=== PATIENT | male | born 1985 | race American Indian/Alaskan Native ===

== ENCOUNTER 2016-12-31 12:57 | Emergency (ER) | payer SELFPAY ==
[2016-12-31] MEDS ORDERED: BICILLIN L-A IM ONE (17:56)
[2016-12-31] MEDS ORDERED: MOTRIN PO ONE (17:56)
--- NOTE | 2016-12-31 18:01 | Emergency Department Report ---
ED ENT HPI - General Chief complaint: Sore Throat Stated complaint: STRIP THROAT Time Seen by Provider: 12/31/16 17:27 Source: patient Mode of arrival: Ambulatory Limitations: No Limitations - History of Present Illness Initial comments: 31M PMH none p/w c/o x3 days of sore throat. Pt AAOX3, speaking in full sentences. Deneis fever, chills, n/v. Tolerating PO fluid without difficulty but states solid food hurts to swallow. Denies taking any OTC medicine for symptoms. Denies any pus or blood drainage from mouth, patient speaking in full sentences. No audible wheezing or stridor. complaint: sore throat Onset/Timin -: days(s) Location: throat Severity: moderate Quality: aching Consistency: intermittent Worsens with: swallowing, eating - Related Data Previous Rx's Medication Instructions Recorded Last Taken Type Dextromethorphan HBr/B-Forrest 1 each PO Q4H PRN #1 box 12/31/16 Unknown Rx [Cepacol Sorethroat-Cough Familia] Ibuprofen [Motrin] 800 mg PO Q8HR PRN #25 tablet 12/31/16 Unknown Rx Allergies Allergy/AdvReac Type Severity Reaction Status Date / Time No Known Allergies Allergy Unverified 12/31/16 13:19 ED Dental HPI - General Chief complaint: Sore Throat Stated complaint: STRIP THROAT Time Seen by Provider: 12/31/16 17:27 Source: patient Mode of arrival: Ambulatory Limitations: No Limitations - Related Data Previous Rx's Medication Instructions Recorded Last Taken Type Dextromethorphan HBr/B-Forrest 1 each PO Q4H PRN #1 box 12/31/16 Unknown Rx [Cepacol Sorethroat-Cough Familia] Ibuprofen [Motrin] 800 mg PO Q8HR PRN #25 tablet 12/31/16 Unknown Rx Allergies Allergy/AdvReac Type Severity Reaction Status Date / Time No Known Allergies Allergy Unverified 12/31/16 13:19 ED Review of Systems ROS: Stated complaint: STRIP THROAT Other details as noted in HPI Constitutional: denies: chills, fever Eyes: denies: eye pain, eye discharge, vision change ENT: throat pain. denies: ear pain Respiratory: denies: cough, shortness of breath, wheezing Cardiovascular: denies: chest pain, palpitations Endocrine: no symptoms reported Gastrointestinal: denies: abdominal pain, nausea, diarrhea Genitourinary: denies: urgency, dysuria Musculoskeletal: denies: back pain, joint swelling, arthralgia Skin: denies: rash, lesions Neurological: denies: headache, weakness, paresthesias Psychiatric: denies: anxiety, depression Hematological/Lymphatic: denies: easy bleeding, easy bruising ED Past Medical Hx - Past Medical History Previous Medical History?: No - Surgical History Past Surgical History?: No - Social History Smoking Status: Never Smoker Substance Use Type: Non Opiate Pain, Other - Medications Home Medications: Home Medications Medication Instructions Recorded Confirmed Last Taken Type Dextromethorphan HBr/B-Forrest 1 each PO Q4H PRN #1 box 12/31/16 Unknown Rx [Cepacol Sorethroat-Cough Familia] Ibuprofen [Motrin] 800 mg PO Q8HR PRN #25 tablet 12/31/16 Unknown Rx ED Physical Exam - General Limitations: No Limitations General appearance: alert, in no apparent distress - Head Head exam: Present: atraumatic, normocephalic - Eye Eye exam: Present: normal appearance, PERRL, EOMI - ENT ENT exam: Present: mucous membranes moist - Expanded ENT Exam Expanded Throat exam: Positive: tonsillar erythema, tonsillar exudate (tonsillar erythema and exudates on the right side tonsillar pillar. No [employer] M[employer]INE [employer]ENDER uvula is midline oropharynx is open and patent) - Neck Neck exam: Present: normal inspection, full ROM - Respiratory Respiratory exam: Present: normal lung sounds bilaterally. Absent: respiratory distress - Cardiovascular Cardiovascular Exam: Present: regular rate, normal rhythm. Absent: systolic murmur, diastolic murmur, rubs, gallop - GI/Abdominal GI/Abdominal exam: Present: soft, normal bowel sounds - Rectal Rectal exam: Present: deferred - Extremities Exam Extremities exam: Present: normal inspection - Back Exam Back exam: Present: normal inspection - Neurological Exam Neurological exam: Present: alert, oriented X3 - Psychiatric Psychiatric exam: Present: normal affect, normal mood - Skin Skin exam: Present: warm, dry, intact, normal color. Absent: rash ED Course Vital Signs 12/31/16 13:19 Temperature 98.5 F Pulse Rate 82 Respiratory 20 Rate Blood Pressure 157/101 O2 Sat by Pulse 98 Oximetry ED Medical Decision Making - Medical Decision Making A/P: Right-sided tonsillitis 1-empirically treated with Bicillin, Motrin when necessary, lozenges when necessary 2-patient is able to tolerate by mouth fluid without difficulties speaking in full sentences no signs of respiratory distress. 3-advised patient to follow up with primary care and to return to the ED if he experiences drooling any shortness of breath difficulty speaking or inability to swallow fluids by mouth. Also advised to return for any high fevers persistent above 100.4 despite Motrin use. Or severe chills. Critical care attestation.: If time is entered above; I have spent that time in minutes in the direct care of this critically ill patient, excluding procedure time. ED Disposition Clinical Impression: Tonsillitis Disposition: TO HOME OR SELFCARE Is pt being admited?: No Does the pt Need Aspirin: No Condition: Stable Instructions: Tonsillitis (ED) Prescriptions: Dextromethorphan HBr/B-Forrest [Cepacol Sorethroat-Cough Familia] 1 each PO Q4H PRN # 1 box PRN Reason: Sore Throat Ibuprofen [Motrin] 800 mg PO Q8HR PRN #25 tablet PRN Reason: Sore Throat Referrals: [facility] [Provider Group] - 3-5 Days Forms: Accompanied Note, Work/School Release Form(ED) Time of Disposition: 18:05
[2016-12-31 18:35] VITALS: BP 168/93
== END 2016-12-31 18:29 | disposition home or self-care (01) ==
LOC: ED 12:57
DX: J03.90 Acute tonsillitis, unspecified (principal)
CPT/HCPCS: 87116; 87430; 96372; 99282; J0561

== ENCOUNTER 2017-05-06 11:11 | Emergency (ER) | payer SELFPAY ==
[2017-05-06 11:23] VITALS: BP 167/87
[2017-05-06] MEDS ORDERED: MOTRIN PO ONE (11:43)
--- NOTE | 2017-05-06 12:02 | XRay Report ---
Lumbar spine: Back pain. The vertebral height, alignment, and interspaces are unremarkable. The bones appear well-mineralized. Impressions: No pathology identified.
--- NOTE | 2017-05-06 12:25 | Emergency Department Report ---
ED Back Pain/Injury HPI - General Chief Complaint: Back Pain/Injury Stated Complaint: TAILBONE PAIN Time Seen by Provider: 05/06/17 11:41 Source: patient Limitations: No Limitations - History of Present Illness Initial Comments: This is a 31-year-old male nontoxic, well nourished in appearance, no acute signs of distress presents to the ED with c/o of low back pain x2 days. 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 Patient denies any trauma to the region. Denies any numbness, tingling , fever, chills, headache, n/v, chest pain, shortness of breathe, dysuria, hematuria, bladder/bowel instability, polyuria, blurry vision. Patient describes pain as aching intermittent with level of 7/10. Patient stated symptoms are resolved when supine position and aggravated when sitting. Patient denies any allergies or PMH. MD Complaint: back pain -: Gradual, days(s) (2) Similar Symptoms Previously: Yes Place: work Radiation: none Severity: mild Severity scale (0 -10): 7 Quality: aching Consistency: intermittent Improves With: none Worsens With: none Associated Symptoms: denies other symptoms. denies: confusion, weakness, chest pain, numbness, difficulty walking, cough, difficulty urinating, diaphoresis, incontinence, fever/chills, constipation, headaches, abdominal pain, loss of appetite, malaise, nausea/vomiting, rash, seizure, shortness of breath, syncope - Related Data Previous Rx's Medication Instructions Recorded Last Taken Type Dextromethorphan/Benzocaine 1 each PO Q4H PRN #1 box 12/31/16 Unknown Rx [Cepacol Sorethroat-Cough Familia] Ibuprofen [Motrin] 800 mg PO Q8HR PRN #25 tablet 12/31/16 Unknown Rx Cyclobenzaprine [Flexeril] 10 mg PO BID PRN #10 tablet 05/06/17 Unknown Rx Ibuprofen [Motrin] 600 mg PO Q8H PRN #30 tablet 05/06/17 Unknown Rx Allergies Allergy/AdvReac Type Severity Reaction Status Date / Time No Known Allergies Allergy Unverified 05/06/17 11:23 ED Review of Systems ROS: Stated complaint: TAILBONE PAIN Other details as noted in HPI Constitutional: denies: chills, fever Eyes: denies: eye pain, eye discharge, vision change ENT: denies: ear pain, throat pain Respiratory: denies: cough, shortness of breath, wheezing Cardiovascular: denies: chest pain, palpitations Endocrine: no symptoms reported Gastrointestinal: denies: abdominal pain, nausea, diarrhea Genitourinary: denies: urgency, dysuria Musculoskeletal: back pain. denies: joint swelling, arthralgia Skin: denies: rash, lesions Neurological: denies: headache, weakness, paresthesias Psychiatric: denies: anxiety, depression Hematological/Lymphatic: denies: easy bleeding, easy bruising ED Past Medical Hx - Past Medical History Previous Medical History?: No - Surgical History Past Surgical History?: No - Social History Smoking Status: Never Smoker Substance Use Type: None - Medications Home Medications: Home Medications Medication Instructions Recorded Confirmed Last Taken Type Dextromethorphan/Benzocaine 1 each PO Q4H PRN #1 box 12/31/16 Unknown Rx [Cepacol Sorethroat-Cough Familia] Ibuprofen [Motrin] 800 mg PO Q8HR PRN #25 tablet 12/31/16 Unknown Rx Cyclobenzaprine [Flexeril] 10 mg PO BID PRN #10 tablet 05/06/17 Unknown Rx Ibuprofen [Motrin] 600 mg PO Q8H PRN #30 tablet 05/06/17 Unknown Rx ED Physical Exam - General Limitations: No Limitations General appearance: alert, in no apparent distress - Head Head exam: Present: atraumatic, normocephalic - Eye Eye exam: Present: normal appearance, PERRL, EOMI Pupils: Present: normal accommodation - ENT ENT exam: Present: normal exam, normal orophraynx, mucous membranes moist, TM's normal bilaterally, normal external ear exam - Neck Neck exam: Present: normal inspection, full ROM. Absent: tenderness, meningismus, lymphadenopathy, thyromegaly - Respiratory Respiratory exam: Present: normal lung sounds bilaterally. Absent: respiratory distress, wheezes, rales, rhonchi, stridor, chest wall tenderness, accessory muscle use, decreased breath sounds, prolonged expiratory - Cardiovascular Cardiovascular Exam: Present: regular rate, normal rhythm, normal heart sounds. Absent: systolic murmur, diastolic murmur, rubs, gallop - GI/Abdominal GI/Abdominal exam: Present: soft, normal bowel sounds. Absent: distended, tenderness, guarding, rebound, rigid, diminished bowel sounds - Rectal Rectal exam: Present: deferred - Extremities Exam Extremities exam: Present: normal inspection, full ROM, normal capillary refill. Absent: tenderness, pedal edema, joint swelling, calf tenderness - Back Exam Back exam: Present: normal inspection, full ROM, paraspinal tenderness (lumbar region). Absent: tenderness, CVA tenderness (R), CVA tenderness (L), muscle spasm, vertebral tenderness, rash noted - Expanded Back Exam Expanded Back exam: Absent: saddle anesthesia Back exam: Negative Straight Leg Raising: Left, Right - Neurological Exam Neurological exam: Present: alert, oriented X3, CN II-XII intact, normal gait, reflexes normal - Psychiatric Psychiatric exam: Present: normal affect, normal mood - Skin Skin exam: Present: warm, dry, intact, normal color. Absent: rash ED Course Vital Signs 05/06/17 11:21 Temperature 98.8 F Pulse Rate 18 L Respiratory 16 Rate Blood Pressure 167/87 O2 Sat by Pulse 99 Oximetry - Reevaluation(s) Reevaluation #1: 05/06/17 12:27 Patient is speaking in full sentences with no signs of distress noted. ED Medical Decision Making - Medical Decision Making This is a 31-year-old male that presents with low back strain. Patient was examined by me and patient is stable. Xray has been obtained and dictated by radiologist with normal limits. Patient was notified of xray results with no questions. UA small hematuria. CT of abd wo contrast obtained with normal limits besides large right inguinoscrotal hernia. Patient was examined for hernia and unable to feel or see any hernia in the region. Patient was notified to f/u with pcp for this. Patient received Motrin in the ED which patient stated symptoms are resolving and better. Patient was instructed Follow-up with a primary care doctor in 3-5 days or if symptoms worsen and continue return to emergency room as soon as possible. Patient received a discharge ibuprofen and Flexeril and was instructed not operate heavy machinery while taking Flexeril due to sedation At time time of discharge, the patient does not seem toxic or ill in appearance. No acute signs of distress noted. Patient agrees to discharge treatment plan of care. No further questions noted by the patient. Critical care attestation.: If time is entered above; I have spent that time in minutes in the direct care of this critically ill patient, excluding procedure time. ED Disposition Clinical Impression: Low back strain Qualifiers: Encounter type: initial encounter Qualified Code(s): S39.012A - Strain of muscle, fascia and tendon of lower back, initial encounter Inguinal hernia Qualifiers: Obstruction and gangrene presence: without obstruction or gangrene Laterality: unilateral Recurrence: not specified as recurrent Qualified Code(s): K40.90 - Unilateral inguinal hernia, without obstruction or gangrene, not specified as recurrent Disposition: DC- TO HOME OR SELFCARE Is pt being admited?: No Does the pt Need Aspirin: No Condition: Stable Instructions: Ibuprofen (By mouth), Cyclobenzaprine (By mouth), Low Back Strain (ED), Inguinal Hernia (ED) Additional Instructions: Follow-up with your primary care doctor in 3-5 days for your abnormal CT findings of Hernia or if symptoms worsen such as bladder or bowel stability, chest pain, short of breath, numbness or tingling sensation in extremities, headache, dizziness, visual changes, nausea vomiting, or abdominal pain, return back to emergency room as was possible. Take ibuprofen and Flexeril as prescribed. Do not operate heavy machinery while taking Flexeril due to sedation Prescriptions: Cyclobenzaprine [Flexeril] 10 mg PO BID PRN #10 tablet PRN Reason: Muscle Spasm Ibuprofen [Motrin] 600 mg PO Q8H PRN #30 tablet PRN Reason: Pain Referrals: [facility] [Outside] - 3-5 Days [facility] [Outside] - 3-5 Days PRIMARY MD MIGUEL [Primary Care Provider] - 3-5 Days BERONICA DORAN MD [Staff Physician] - 3-5 Days Forms: Work/School Release Form(ED)
[2017-05-06 12:47] LABS: Bacteria,Urine 1+ /HPF (Negative); Bilirubin,Urine NEG (Negative); Blood,Urine SM (Negative); Ketones,Urine NEG (Negative); Leukocyte Esterase,Urine NEG (Negative); Mucus,Urine FEW /HPF; Nitrite,Urine NEG (Negative); Protein,Urine <15 mg/dL mg/dL (Negative); RBC,Urine < 1.0 /HPF (0.0-6.0); Urobilinogen,Urine < 2.0 mg/dL (<2.0)
--- NOTE | 2017-05-06 15:12 | Cat Scan Report ---
CT scan of abdomen and pelvis without IV contrast: History: Back pain, UA positive for blood. Findings: Normal lung bases. No pleural or pericardial effusion. Probable fatty liver. Normal spleen pancreas and gallbladder. Normal adrenals. No definite calculi the kidney parenchyma and bladder. No free intraperitoneal fluid or air. No evidence of adenopathy. Gaseous colon with moderate volume stool in colon. No evidence of appendicitis or diverticulitis. There is an large right inguinoscrotal hernia measuring 10 cm x 7.6 cm. containing omentum. Impression: Large right inguinoscrotal hernia.
== END 2017-05-06 15:41 | disposition home or self-care (01) ==
LOC: ED 11:11
DX: S39.012A Strain of muscle, fascia and tendon of lower back, initial encounter (principal); K40.90 Unilateral inguinal hernia, without obstruction or gangrene, not specified as recurrent; X58.XXXA Exposure to other specified factors, initial encounter; Y93.9 Activity, unspecified; Y92.89 Other specified places as the place of occurrence of the external cause; Y99.8 Other external cause status
CPT/HCPCS: 72100; 74176; 81001

== ENCOUNTER 2019-08-20 08:51 | Emergency (ER) | payer BC ==
--- NOTE | 2019-08-20 09:35 | Event Note ---
ED Screening Note Date of service: 08/20/19 Time: 09:33 ED Screening Note: 34 y/o male comes in for injury to his right ring finger. This initial assessment/diagnostic orders/clinical plan/treatment(s) is/are subject to change based on patients health status, clinical progression and re-assessment by fellow clinical providers in the ED. Further treatment and workup at subsequent clinical providers discretion. Patient/guardian urged not to elope from the ED as their condition may be serious if not clinically assessed and managed. Initial orders include:
[2019-08-20 10:06] VITALS: BP 195/147
--- NOTE | 2019-08-20 10:07 | XRay Report ---
CLINICAL DATA: injury to right hand TECHNICAL DATA: Three views were obtained, AP, lateral and oblique. FINDINGS: There is no acute fracture or dislocation. The visualized joint spaces are normal. IMPRESSION: No acute radiographic abnormality. CLINICAL DATA: injury to right hand TECHNICAL DATA: Three views were obtained, AP, lateral and oblique. FINDINGS: There is no acute fracture or dislocation. The visualized joint spaces are normal. IMPRESSION: No acute radiographic abnormality. CLINICAL DATA: injury to right hand TECHNICAL DATA: Three views were obtained, AP, lateral and oblique. FINDINGS: There is no acute fracture or dislocation. The visualized joint spaces are normal. IMPRESSION: No acute radiographic abnormality. Signer Name: Charlie Abad MD Signed: 08/20/2019 10:02 AM Workstation Name: [id number]
[2019-08-20] MEDS ORDERED: oxyCODONE /ACETAMINOPHEN 5-325MG TAB PO ONE (10:11)
[2019-08-20] MEDS ORDERED: TETANUS,DIPH,PERTUSS(ACELL) VACCINE 0.5 ML SYRINGE IM ONE (10:11)
[2019-08-20] MEDS ORDERED: LIDOCAINE 2%/EPINEPHRINE 1:200,000 VIAL (20 ML) INFILTRATI ONE (10:11)
--- NOTE | 2019-08-20 10:12 | Emergency Department Report ---
ED General Adult HPI - General Chief complaint: Extremity Injury, Upper Stated complaint: RT FINGER SMASHED/PAIN Time Seen by Provider: 08/20/19 09:28 Source: patient, RN notes reviewed, old records reviewed Mode of arrival: Ambulatory Limitations: No Limitations - History of Present Illness Initial comments: Patient is a pleasant 34-year-old gentleman who is not known to myself previously, he is right-hand dominant, does not have a primary care doctor, and does not have chronic medical conditions that he is aware of. He presents to the ER with a complaint of subacute right distal dorsal ring finger pain and swelling. He had a work-related injury where he had a mild crush injury to the dorsal distal fingertip of his right upper extremity. This injury was sustained a few days ago. 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 He denies additional injuries, and he denies additional complaints. There is no complaint of headache, neck pain, chest pain, abdominal pain or shortness of breath. There is no complaint of extremity weakness saddle numbness. The patient denies additional injuries and complaints. Pain is throbbing, increases with palpation and range of motion, and decreases with rest. -: Gradual, days(s) Location: right, lower extremity Quality: other Consistency: other Improves with: other Worsens with: other Associated Symptoms: other - Related Data Previous Rx's Medication Instructions Recorded Last Taken Type Ibuprofen [Motrin] 800 mg PO Q8HR PRN #25 tablet 12/31/16 Unknown Rx Ibuprofen [Motrin] 600 mg PO Q8H PRN #30 tablet 05/06/17 Unknown Rx Acetaminophen [Non-Aspirin Extra 500 mg PO Q6HR PRN #30 tablet 08/20/19 Unknown Rx Strength] Clindamycin [Clindamycin CAP] 300 mg PO Q8H #15 cap 08/20/19 Unknown Rx Ibuprofen [Motrin] 600 mg PO Q8H PRN #30 tablet 08/20/19 Unknown Rx Allergies Allergy/AdvReac Type Severity Reaction Status Date / Time No Known Allergies Allergy Verified 08/20/19 08:54 ED Review of Systems ROS: Stated complaint: RT FINGER SMASHED/PAIN Other details as noted in HPI Constitutional: see HPI Eyes: as per HPI ENT: as per HPI Respiratory: see HPI Cardiovascular: as per HPI Endocrine: see HPI Gastrointestinal: as per HPI Genitourinary: as per HPI Musculoskeletal: as per HPI Skin: as per HPI Neurological: as per HPI Psychiatric: as per HPI Hematological/Lymphatic: as per HPI ED Past Medical Hx - Past Medical History Previous Medical History?: No - Surgical History Past Surgical History?: No - Social History Smoking Status: Never Smoker Substance Use Type: None - Medications Home Medications: Home Medications Medication Instructions Recorded Confirmed Last Taken Type Ibuprofen [Motrin] 800 mg PO Q8HR PRN #25 tablet 12/31/16 Unknown Rx Ibuprofen [Motrin] 600 mg PO Q8H PRN #30 tablet 05/06/17 Unknown Rx Acetaminophen [Non-Aspirin Extra 500 mg PO Q6HR PRN #30 tablet 08/20/19 Unknown Rx Strength] Clindamycin [Clindamycin CAP] 300 mg PO Q8H #15 cap 08/20/19 Unknown Rx Ibuprofen [Motrin] 600 mg PO Q8H PRN #30 tablet 08/20/19 Unknown Rx ED Physical Exam - General Limitations: No Limitations General appearance: alert, anxious, obese - Head Head exam: Present: atraumatic, normocephalic - Eye Eye exam: Present: normal appearance, EOMI. Absent: nystagmus - ENT ENT exam: Present: normal exam, normal orophraynx, mucous membranes moist, normal external ear exam - Neck Neck exam: Present: normal inspection, full ROM. Absent: tenderness, meningis mus - Respiratory Respiratory exam: Present: normal lung sounds bilaterally. Absent: respiratory distress - Cardiovascular Cardiovascular Exam: Present: regular rate, normal rhythm, normal heart sounds. Absent: bradycardia, tachycardia, irregular rhythm, systolic murmur, diastolic murmur, rubs, gallop - GI/Abdominal GI/Abdominal exam: Present: soft. Absent: distended, tenderness, guarding, rebound, rigid, pulsatile mass - Rectal Rectal exam: Present: deferred - Extremities Exam Extremities exam: Present: normal inspection, full ROM, other (2+ pulses noted in the bilateral upper extremities. Sensation is intact to light touch in the bilateral deltoid, median, radial, ulnar distribution. Finger intrinsics, lumbricals, thumb intrinsics intact in the right upper extremity. There is a paronychia noted on the dorsal distal aspect of the right ring finger. There is minimal surrounding cellulitis.). Absent: pedal edema, calf tenderness - Back Exam Back exam: Present: normal inspection, full ROM. Absent: tenderness, CVA tenderness (R), CVA tenderness (L), paraspinal tenderness, vertebral tenderness - Neurological Exam Neurological exam: Present: alert, other (There is no facial droop. The tongue is midline. Extraocular movements are intact bilaterally. There is 5 out of 5 strength in bilateral upper and lower extremities. Sensation is intact to light touch bilateral upper and lower extremities. There is a normal gait.) - Psychiatric Psychiatric exam: Present: anxious - Skin Skin exam: Present: warm, dry, intact, normal color. Absent: rash ED Course Vital Signs 08/20/19 08/20/19 09:21 10:05 Temperature 99.0 F Pulse Rate 92 H 108 H Respiratory 20 16 Rate Blood Pressure 201/140 Blood Pressure 195/147 [Left] O2 Sat by Pulse 98 100 Oximetry - Reevaluation(s) Reevaluation #1: 08/20/19 10:31 Differential diagnosis, including but not limited to: Paronychia, crush injury, cellulitis, chronic hypertension Assessment and plan: 34-year-old gentleman, with what appears to be simple right-sided paronychia, without evidence of compartment syndrome. He is afebrile with reassuring vital signs with the exception of hypertension. His hypertension is chronic as per review of old medical records. It does not require emergent diagnostic work-up or intervention at this time. Please reference the [employer] clinical policy and hypertension which is not acutely symptomatic. We discussed diet and lifestyle modifications, need for outpatient follow-up with a primary care doctor. His right upper extremity finger was prepped in typical aseptic technique with Betadine, and the patient has given verbal informed consent for paronychia drainage after thecal block. 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 - I & D Right Distal Dorsal Finger Type of Procedure: Simple Blade Size: 11 I & D Procedure: betadine prep Progress: Patient gave verbal consent for stab incision to paronychia on the right ring finger. He refused/declined thecal block/ring block. Risks, benefits, alternatives described. The right ring finger was prepped in typical aseptic technique with Betadine. A quick stab incision was made with an 11 blade, and approximately 5 cc of purulent material were expressed. The wound was then gently expressed, and patient felt much improved. A 4 x 4 dressing was then applied with gentle pressure. The patient tolerated the procedure well. ED Medical Decision Making - Radiology Data Radiology results: report reviewed, image reviewed Print Report Referring Physician: RUFUS MELENDEZ Patient Name: ZACK JOSEPH Date of : 1985 Sex: Male Report Date: 2019-08-20 Report Status: Finalized Findings [facility] [address] [place] [address] XRay Report Signed Patient: ZACK JOSEPH JR MR#: [id number] : 1985 Acct:[id number] Age/Sex: 34 / M ADM Date: 08/20/19 Loc: ED Attending Dr: Ordering Physician: ALEAH LEHMAN Date of Service: 08/20/19 Procedure(s): XR finger(s) 2+V RT Accession Number(s): [id number] cc: ALEAH LEHMAN Fluoro Time In Minutes: CLINICAL DATA: injury to right hand TECHNICAL DATA: Three views were obtained, AP, lateral and oblique. FINDINGS: There is no acute fracture or dislocation. The visualized joint spaces are normal. IMPRESSION: No acute radiographic abnormality. CLINICAL DATA: injury to right hand TECHNICAL DATA: Three views were obtained, AP, lateral and oblique. FINDINGS: There is no acute fracture or dislocation. The visualized joint spaces are normal. IMPRESSION: No acute radiographic abnormality. CLINICAL DATA: injury to right hand TECHNICAL DATA: Three views were obtained, AP, lateral and oblique. FINDINGS: There is no acute fracture or dislocation. The visualized joint spaces are normal. IMPRESSION: No acute radiographic abnormality. Signer Name: Charlie Abad MD Signed: 08/20/2019 10:02 AM Workstation Name: [id number] Transcribed By: KEZIA Dictated By: Charlie Abad MD Electronically Authenticated By: Charlie Abad MD Signed Date/Time: 08/20/19 1002 DD/ 01 Critical care attestation.: If time is entered above; I have spent that time in minutes in the direct care of this critically ill patient, excluding procedure time. ED Disposition Clinical Impression: Paronychia, Elevated blood pressure reading Disposition: DC-01 TO HOME OR SELFCARE Is pt being admited?: No Does the pt Need Aspirin: No Condition: Stable Additional Instructions: Please wash the right upper extremity with gentle soap and water once every 12- 24 hours. Patient may soak the right ring finger in hot soaks once every 12-24 hours. Otherwise, keep the right ring finger dry and covered. Take the antibiotics as directed. Follow-up with a primary care doctor, or hand specialist/specialist employee labor relations within the next 3 to 5 days for repeat checkup and/or evaluation. Local primary care doctors include the following: [facility], [facility], Dr. Peterson Local orthopedist include the following: Dr. 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 Deferred to the patient's hotel or motel room service supervisor or boss as to whether or not this will qualify as per the direct protocols. Patient was found to have hypertension and elevated blood pressure in the emergency room. Recommend that patient diet, lose weight, participate in exercise as tolerated, drink plenty of water, and eats plenty of fiber, vegetables, lean protein, and avoid consumption of salt, sugar, and simple carbohydrates. Recommend following up with a primary care doctor for chronic elevated blood pressure within the next 2 weeks. Long-term complications of hypertension and elevated blood pressure include stroke, heart attack, disability, paralysis, loss of quality of life. Please return to the emergency room right away with new, worsened or different symptoms, or symptoms not present on the initial emergency room evaluation. Prescriptions: Clindamycin [Clindamycin CAP] 300 mg PO Q8H #15 cap Ibuprofen [Motrin] 600 mg PO Q8H PRN #30 tablet PRN Reason: Pain Acetaminophen [Non-Aspirin Extra Strength] 500 mg PO Q6HR PRN #30 tablet PRN Reason: Pain , Severe (7-10) Referrals: KARLENE PETERSON MD [Staff Physician] - 3-5 Days [facility] [Provider Group] - 3-[address] [facility] [Provider Group] - 3-5 Days NORBERT MCCARTHY MD [Staff Physician] - 3-5 Days [facility] [Provider Group] - 3-5 Days
[2019-08-20] MEDS ORDERED: LIDOCAINE (2%) 20 MG/1 ML VIAL 20 ML MDV INFILTRATI ONE (10:27)
[2019-08-20] MEDS ORDERED: POVIDONE-IODINE OINTMENT 28.35 GM TP SCH (11:00)
== END 2019-08-20 11:18 | disposition home or self-care (01) ==
LOC: ED 08:51
DX: L03.011 Cellulitis of right finger (principal); R03.0 Elevated blood-pressure reading, without diagnosis of hypertension
CPT/HCPCS: 90471; 90715; 99283

== ENCOUNTER 2019-08-26 11:37 | Outpatient (CLI) | payer BC ==
[2019-08-26 11:58] LABS: Basophils # (Auto) 0.1 K/mm3 (0.0-0.1); Basophils % (Auto) 0.8 % (0.0-1.8); Eosinophils # (Auto) 0.1 K/mm3 (0.0-0.4); Eosinophils % (Auto) 1.4 % (0.0-4.3); Hematocrit 42.6 % (35.5-45.6); Hemoglobin 14.8 gm/dl (11.8-15.2); Lymphocytes % (Auto) 20.9 % (13.4-35.0); Mean Corpuscular HGB Conc 35 % (32-34); Mean Corpuscular Volume 84 fl (84-94); Monocytes # (Auto) 0.6 K/mm3 (0.0-0.8); Monocytes % (Auto) 6.1 % (0.0-7.3); Platelet Count 325 K/mm3 (140-440); Red Blood Count 5.06 M/mm3 (3.65-5.03); Red Cell Distribution Width 13.4 % (13.2-15.2)
[2019-08-26 12:18] LABS: Alanine Aminotransferase 68 units/L (7-56); Albumin 4.9 g/dL (3.9-5); BUN/Creatinine Ratio 8; Blood Urea Nitrogen 9 mg/dL (9-20); Calcium 9.4 mg/dL (8.4-10.2); Chol/HDL Ratio 4.64 %; HDL Cholesterol 48 mg/dL (40-59); Hemolysis Index 2; LDL Cholesterol,Direct 160 mg/dL (50-130)
[2019-08-29 14:31] LABS: Vitamin D, 25-OH, D2 <4 ng/mL
== END 2019-08-26 11:38 | disposition home or self-care (01) ==
LOC: LAB 11:37
PROVIDERS: ATTEND Internal Medicine
DX: Z00.00 Encounter for general adult medical examination without abnormal findings (principal); Z13.1 Encounter for screening for diabetes mellitus; E66.09 Other obesity due to excess calories; Z13.220 Encounter for screening for lipoid disorders; Z13.29 Encounter for screening for other suspected endocrine disorder; Z13.21 Encounter for screening for nutritional disorder
CPT/HCPCS: 36415; 80053; 80061; 82306; 82607; 83036; 84443; 85025

== ENCOUNTER 2020-01-20 08:57 | Outpatient (CLI) | payer BC ==
--- NOTE | 2020-01-20 15:43 | Vascular Lab Report ---
Duplex Doppler examination of the renal arteries INDICATION: Morbid obesity, hypertension COMPARISON: CT abdomen and pelvis 05/06/2017 FINDINGS: Study was difficult due to the patient's body habitus and overlying bowel gas limiting the evaluation. Good flow is seen in the aorta. Systolic velocity in the aorta is 121 cm/s. No evidence of bowel aort ic aneurysm is seen. Flow is noted in the proximal superior mesenteric artery Flow is noted in the renal arteries bilaterally with peak systolic velocity on the right of 111 cm/s and peak systolic velocity on the left of 90 cm/s. Resistive indices were not calculated due to the aortic velocities. Right kidney measures 10.4 cm in length and the left kidney measures 10.7 cm in length. No masses are seen. No obvious calculi are noted. No cortical thinning is seen. No evidence of obstruction is note d. IMPRESSION: 1. No anatomical renal abnormalities seen 2. Flow is noted in the renal arterial systems bilaterally though is incompletely assessed due to fac tors above regarding stenoses. Signer Name: Nilay Caban MD Signed: 01/20/2020 3:38 PM Workstation Name: [id number]
== END 2020-01-20 08:58 | disposition home or self-care (01) ==
LOC: US 08:57
PROVIDERS: ATTEND Internal Medicine
DX: I10 Essential (primary) hypertension (principal)
CPT/HCPCS: 93975

== ENCOUNTER 2020-04-13 08:48 | Emergency (ER) | payer BC ==
[2020-04-13 08:53] VITALS: BP 190/113
[2020-04-13] MEDS ORDERED: IBUPROFEN 800 MG TAB PO ONE (09:33)
[2020-04-13] MEDS ORDERED: LIDOCAINE VISCOUS 2% 15 ML ORAL LIQD MM ONE (09:33)
--- NOTE | 2020-04-13 09:59 | XRay Report ---
CHEST 2 VIEWS INDICATION: Chest pain.. COMPARISON: None. FINDINGS: Support devices: None. Heart: Within normal limits. Lungs/Pleura: No acute air space or interstitial disease. No significant pleural effusion. IMPRESSION: No acute findings. Signer Name: Joe Kaur MD Signed: 04/13/2020 9:55 AM Workstation Name: [id number]
--- NOTE | 2020-04-13 10:22 | Emergency Department Report ---
- General Chief Complaint: Sore Throat Stated Complaint: throat pain Time Seen by Provider: 04/13/20 09:19 Source: patient Mode of arrival: Ambulatory Limitations: No Limitations - History of Present Illness Initial Comments: This is a 34-year-old male nontoxic, well nourished in appearance, no acute signs of distress presents to the ED with c/o of sore throat and nonproductive d ry cough x several days. Patient denies any sick contacts. Patient denies any recent travels, long car, recent hospital stays. Patient denies any calf pain or calf tenderness. Patient describes sore throat as swallowing razer blades. Patient denies any fever, chills, hemoptysis, headache, stiff neck, nausea, vomiting, chest pain, shortness of breath, numbness or tingling. Patient denies any drooling or hoarseness. Patient denies any allergies. Patient stated has past medical history of hypertension which he missed his dose of blood pressure medication today. Patient that he does have blood pressure medication and stated just missed it today. MD Complaint: cough, sore throat -: days(s) Severity: mild Severity scale (0 -10): 3 Quality: aching Consistency: intermittent Improves With: nothing Worsens With: other (swallowing) Associated Symptoms: sore throat, cough. denies: fever, chills, myalgias, diaphoresis, headache, rhinorrhea, nasal congestion, stiff neck, chest pain, shortness of breath, abdominal pain, nausea, vomiting, diarrhea, dysuria, rash, confusion, right sweats, weight loss, epistaxis, hoarseness, ear pain Treatments Prior to Arrival: none - Related Data Previous Rx's Medication Instructions Recorded Last Taken Type Ibuprofen [Motrin] 800 mg PO Q8HR PRN #25 tablet 12/31/16 Unknown Rx Ibuprofen [Motrin] 600 mg PO Q8H PRN #30 tablet 05/06/17 Unknown Rx Acetaminophen [Non-Aspirin Extra 500 mg PO Q6HR PRN #30 tablet 08/20/19 Unknown Rx Strength] Clindamycin [Clindamycin CAP] 300 mg PO Q8H #15 cap 08/20/19 Unknown Rx Ibuprofen [Motrin] 600 mg PO Q8H PRN #30 tablet 08/20/19 Unknown Rx Amoxicillin [Amoxicillin TAB] 875 mg PO BID #20 tablet 04/13/20 Unknown Rx Ibuprofen [Motrin] 600 mg PO Q8H PRN #20 tablet 04/13/20 Unknown Rx Nystas/Diphen/Xyl Visc/Mylanta 15 ml MM Q6H PRN 5 Days ml 04/13/20 Unknown Rx [Magic Mouthwash] Allergies Allergy/AdvReac Type Severity Reaction Status Date / Time No Known Allergies Allergy Verified 08/20/19 08:54 ED Review of Systems ROS: Stated complaint: throat pain Other details as noted in HPI Comment: All other systems reviewed and negative Constitutional: denies: chills, fever Eyes: denies: eye pain, eye discharge, vision change ENT: throat pain. denies: ear pain Respiratory: cough. denies: shortness of breath, wheezing Cardiovascular: denies: chest pain, palpitations Endocrine: no symptoms reported Gastrointestinal: denies: abdominal pain, nausea, diarrhea Genitourinary: denies: urgency, dysuria Musculoskeletal: denies: back pain, joint swelling, arthralgia Skin: denies: rash, lesions Neurological: denies: headache, weakness, paresthesias Psychiatric: denies: anxiety, depression Hematological/Lymphatic: denies: easy bleeding, easy bruising ED Past Medical Hx - Past Medical History Previous Medical History?: Yes Hx Hypertension: Yes - Surgical History Past Surgical History?: No - Social History Smoking Status: Never Smoker Substance Use Type: None - Medications Home Medications: Home Medications Medication Instructions Recorded Confirmed Last Taken Type Ibuprofen [Motrin] 800 mg PO Q8HR PRN #25 tablet 12/31/16 Unknown Rx Ibuprofen [Motrin] 600 mg PO Q8H PRN #30 tablet 05/06/17 Unknown Rx Acetaminophen [Non-Aspirin Extra 500 mg PO Q6HR PRN #30 tablet 08/20/19 Unknown Rx Strength] Clindamycin [Clindamycin CAP] 300 mg PO Q8H #15 cap 08/20/19 Unknown Rx Ibuprofen [Motrin] 600 mg PO Q8H PRN #30 tablet 08/20/19 Unknown Rx Amoxicillin [Amoxicillin TAB] 875 mg PO BID #20 tablet 04/13/20 Unknown Rx Ibuprofen [Motrin] 600 mg PO Q8H PRN #20 tablet 04/13/20 Unknown Rx Nystas/Diphen/Xyl Visc/Mylanta 15 ml MM Q6H PRN 5 Days ml 04/13/20 Unknown Rx [Magic Mouthwash] ED Physical Exam - General Limitations: No Limitations General appearance: alert, in no apparent distress - Head Head exam: Present: atraumatic, normocephalic - Eye Eye exam: Present: normal appearance - Expanded ENT Exam Expanded Ear exam: Present: normal external inspection Mouth exam: Present: normal external inspection, tongue normal. Absent: drooling, trismus, muffled voice Teeth exam: Present: normal inspection Throat exam: Positive: tonsillar erythema, other (uvula midline). Negative: tonsillomegaly, tonsillar exudate, R peritonsillar mass, L peritonsillar mass - Neck Neck exam: Present: normal inspection, full ROM. Absent: tenderness, meningismus, lymphadenopathy - Respiratory Respiratory exam: Present: normal lung sounds bilaterally. Absent: respiratory distress, wheezes, rales, rhonchi, stridor, chest wall tenderness, accessory muscle use, decreased breath sounds, prolonged expiratory - Cardiovascular Cardiovascular Exam: Present: regular rate, normal rhythm, normal heart sounds. Absent: irregular rhythm, systolic murmur, diastolic murmur, rubs, gallop - Extremities Exam Extremities exam: Present: full ROM - Back Exam Back exam: Present: full ROM - Neurological Exam Neurological exam: Present: alert, oriented X3, normal gait - Psychiatric Psychiatric exam: Present: normal affect, normal mood - Skin Skin exam: Present: warm, dry, intact, normal color. Absent: rash ED Course Vital Signs 04/13/20 04/13/20 08:49 10:28 Temperature 98.9 F Pulse Rate 111 H 98 H Respiratory 20 20 Rate Blood Pressure 190/113 O2 Sat by Pulse 98 100 Oximetry - Reevaluation(s) Reevaluation #1: 04/13/20 10:21 Patient is speaking in full sentences with no signs of distress noted. ED Medical Decision Making - Radiology Data Referring Physician: JEAN RYAN Patient Name: ZACK JOSEPH JR Date of : 1985 Sex: Male Report Date: 2020-04-13 Report Status: Finalized [facility] [address] [place] [address] XRay Report Signed Patient: ZACK JOSEPH JR MR#: [id number] : 1985 Acct:[id number] Age/Sex: 34 / M ADM Date: 04/13/20 Loc: ED Attending Dr: Ordering Physician: JEAN RYAN NP Date of Service: 04/13/20 Procedure(s): XR chest routine 2V Accession Number(s): [id number] cc: JEAN RYAN NP Fluoro Time In Minutes: CHEST 2 VIEWS INDICATION: Chest pain.. COMPARISON: None. FINDINGS: Support devices: None. Heart: Within normal limits. Lungs/Pleura: No acute air space or interstitial disease. No significant pleural effusion. IMPRESSION: No acute findings. Signer Name: Joe Kaur MD Signed: 04/13/2020 9:55 AM Workstation Name: [id number] Transcribed By: ES Dictated By: Joe Kaur MD Electronically Authenticated By: Joe Kaur MD Signed Date/Time: 04/13/20954 DD/ 3 TD/TT: - Medical Decision Making This is a 34-year-old male that presents with pharyngitis. Patient is stable and was examined by me. Chest x-ray has been obtained and dictated by radio logist with normal exam. Patient is notified of x-ray results with no questions noted. Patient does not meet clinical concerns of COVID-19 but patient was instructed and educated on signs and symptoms and to self quarantine and seek medical attention as soon as possible if symptoms does occur. Patient be discharged with amoxicillin. Patient was instructed to increase hydration, rest and take Motrin for fever episodes. Patient received motrin and tesslone perrls in the ED. Vitals stable. Patient is nonfebrile and normal heart rate. Patient was instructed Follow-up with a primary care doctor in 3-5 days or if symptoms worsen and continue return to emergency room as soon as possible. At time time of discharge, the patient does not seem toxic or ill in appearance. No acute signs of distress noted. Patient agrees to discharge treatment plan of care. No further questions noted by the patient.nt. Patient was also instructed to take medication for his blood pressure once he gets home. According to ACEP: (1) in ED patients with asymptomatic markedly elevated blood pressure, routine screening for acute target organ injury (eg, serum creatinine, urinalysis, ECG) is not required. (1) In patients with asymptomatic markedly elevated blood pressure, routine ED medical intervention is not required. Critical care attestation.: If time is entered above; I have spent that time in minutes in the direct care of this critically ill patient, excluding procedure time. ED Disposition Clinical Impression: Pharyngitis Qualifiers: Pharyngitis/tonsillitis etiology: unspecified etiology Qualified Code(s): J02.9 - Acute pharyngitis, unspecified Disposition: TO HOME OR SELFCARE Is pt being admited?: No Does the pt Need Aspirin: No Condition: Stable Instructions: Pharyngitis (ED) Additional Instructions: Follow-up with a primary care doctor in 3-5 days or if symptoms worsen and continue return to emergency room as soon as possible. Prescriptions: Amoxicillin [Amoxicillin TAB] 875 mg PO BID #20 tablet Nystas/Diphen/Xyl Visc/Mylanta [Magic Mouthwash] 15 ml MM Q6H PRN 5 Days ml PRN Reason: Sore Throat Ibuprofen [Motrin] 600 mg PO Q8H PRN #20 tablet PRN Reason: Pain Referrals: PRIMARY CAREMD [Primary Care Provider] - 3-5 Days KARLENE ROBERTS MD [Staff Physician] - 3-5 Days Forms: Work/School Release Form(ED)
== END 2020-04-13 10:33 | disposition home or self-care (01) ==
LOC: ED 08:48
DX: J02.9 Acute pharyngitis, unspecified (principal)
CPT/HCPCS: 71046; 99283

== ENCOUNTER 2022-01-10 09:52 | Outpatient (CLI) | payer BC | END 2022-01-10 09:53 | disposition home or self-care (01) | LOC: LABHHL 09:52 | PROVIDERS: ATTEND Internal Medicine | DX: E11.65 Type 2 diabetes mellitus with hyperglycemia (principal) | CPT/HCPCS: 36415; 83036 ==